=== PATIENT | male | born 1995 | race African-American/Black ===

== ENCOUNTER 2016-11-03 09:58 | Emergency (ER) | payer SELFPAY ==
[~2016-11-03] VITALS: Ht 175.3 cm; Wt 70.0 kg
[2016-11-03 09:59] VITALS: BP 120/68; PULSE 80; RESP 17; TEMP 98.2; O2SAT 99
--- NOTE | 2016-11-03 10:06 | PD ---
HPI . Penile discharge and burning when urinating for 3 days Chief Complaint: Complaint Time Seen by Provider: 10:06 Travel History International Travel<30 days: No Contact w/Intl Traveler<30days: No Traveled to known affect area: No History of Present Illness HPI 21-year-old male with no significant past medical history here with complaints of dysuria and penile discharge for 3 days. Patient admits to unprotected sex with someone. He says that the partner denies any STDs, but he recently started experiencing burning when urinating as well as mucus-like penile discharge. He denies any lumps or lesions. He denies any other symptoms. PFS Past Medical History Medical History: Denies Significant Hx ?: Not Social History Tobacco Use: Yes Substance Use: Yes Allergies-Medications (Allergen,Severity, Reaction): Coded Allergies: No Known Allergies (Unverified , 11/03/16) Reported Meds & Prescriptions Reported Meds & Active Scripts Active No Active Prescriptions or Reported Medications Review of Systems General / Constitutional: No: Fever Eyes: No: Visual changes HENT: No: Headaches Cardiovascular: No: Chest Pain or Discomfort Respiratory: No: Shortness of Breath Gastrointestinal: No: Abdominal Pain Genitourinary: Positive: Dysuria, Other (penile discharge) Musculoskeletal: No: Pain Skin: No Rash Neurologic: No: Weakness Psychiatric: No: Depression Endocrine: No: Polydipsia Hematologic/Lymphatic: No: Easy Bruising Physical Exam Narrative GENERAL: AAO x 3, no acute distress, Well-nourished, well-developed patient. SKIN: Warm and dry. No visible rashes or bruising. HEAD: Normocephalic and atraumatic. EYES: No scleral icterus. No injection or drainage. ENT: No nasal drainage noted. Airway patent. NECK: Supple, trachea midline. No JVD. CARDIOVASCULAR: Regular rate and rhythm without murmurs, gallops, or rubs. RESPIRATORY: Breath sounds equal bilaterally. No accessory muscle use. No rhonchi or rales. GASTROINTESTINAL: Abdomen soft, non-tender, nondistended. GENITAL: Candy ROSENBAUM present: + mucoid white/yellow penile discharge. no lesions EXTREMITIES: No cyanosis or edema. BACK: Nontender without obvious deformity. No CVA tenderness. PSYCH: AAO x 3, normal affect. Data Data Last Documented VS Vital Signs Date Time Temp Pulse Resp B/P Pulse Ox O2 Delivery O2 Flow Rate FiO2 11/03/16 09:59 98.2 80 17 120/68 99 Orders Gc And Chlamydia Pcr (11/03/16 10:11) Azithromycin (Zithromax) (11/03/16 10:15) Ceftriaxone Inj (Rocephin Inj) (11/03/16 10:15) Sodium Chloride 0.9% Flush (Ns Flush) (11/03/16 10:15) Lidocaine 1% Inj (50 Ml) (Xylocaine 1% I (11/03/16 10:15) MDM Medical Decision Making Medical Screen Exam Complete: Yes Emergency Medical Condition: Yes Medical Record Reviewed: Yes Differential Diagnosis Dysuria, urethritis, gonorrhea, Chlamydia, less likely syphilis Narrative Course 21-year-old male with no significant past medical history here with complaints of dysuria and penile discharge for 3 days. Patient admits to unprotected sex with someone. He says that the partner denies any STDs, but he recently started experiencing burning when urinating as well as mucus-like penile discharge. He denies any lumps or lesions. He denies any other symptoms. Patient seen and examined. We'll go ahead and check a urine GC PCR. We discussed STDs. He has opted for treatment. We'll go ahead and provide him with Rocephin and azithromycin. I've advised him to go to [facility] for further testing. Patient verbalized understanding of instructions, questions were answered, and thanked me for their care. I advised them if their condition worsens, please return to the nearest emergency room for further care. Diagnosis Primary Impression: Penile discharge Additional Impression: Dysuria Patient Instructions: General Instructions, Sexually Transmitted Diseases (ED) Additional Instructions: Please return to emergency department if your symptoms return or worsen. Follow up with your primary care provider. Follow-up the health department for further testing. Scripts No Active Prescriptions or Reported Meds Disposition: 01 DISCHARGE HOME Condition: Stable Cleo Appiah November 03, 2016 10:06
[2016-11-03] MEDS ORDERED: SODIUM CHLORIDE 0.9% FLUSH 10 ML FLUSH IVF PRN (10:15)
[2016-11-03] MEDS ORDERED: AZITHROMYCIN 250 MG TAB PO ONE (10:15)
[2016-11-03] MEDS ORDERED: LIDOCAINE HCL 1% 50 ML VIAL XX ONE (10:15)
[2016-11-03] MEDS ORDERED: cefTRIAXone 250 MG VIAL IM ONE (10:15)
[2016-11-03 14:14] LABS: CHLAMYDIA PCR NOT DETECTED (NOT DETECT); NEISSERIA PCR DETECTED (NOT DETECT)
== END 2016-11-03 10:55 | disposition home or self-care (01) ==
LOC: NEPK 09:58
DX: R30.0 Dysuria (principal); R36.9 Urethral discharge, unspecified; Z72.0 Tobacco use; F19.10 Other psychoactive substance abuse, uncomplicated
CPT/HCPCS: 87491; 87591; 96372; 99283; J0696

== ENCOUNTER 2017-03-31 13:22 | Emergency (ER) | payer SELFPAY ==
[~2017-03-31] VITALS: Ht 177.8 cm; Wt 75.0 kg
[2017-03-31 13:24] VITALS: BP 135/76; PULSE 83; RESP 18; TEMP 99; O2SAT 96
[2017-03-31] MEDS ORDERED: cefTRIAXone 250 MG VIAL IM ONE (13:45)
[2017-03-31] MEDS ORDERED: AZITHROMYCIN 250 MG TAB PO ONE (13:45)
--- NOTE | 2017-03-31 13:49 | PD ---
HPI Chief Complaint: Complaint Time Seen by Provider: 13:43 Travel History International Travel<30 days: No Contact w/Intl Traveler<30days: No Traveled to known affect area: No History of Present Illness HPI 22-year-old male presents to the emergency department for evaluation of a possible STD. Patient states he has had burning with urination over the last 2- 3 days. He states he has had some discharge. He has no abdominal pain. No fever or chills. Does have unprotected intercourse. No other symptoms to report. PFSH Past Medical History Medical History: Denies Significant Hx Social History Tobacco Use: Yes Substance Use: Yes Allergies-Medications (Allergen,Severity, Reaction): Coded Allergies: No Known Allergies (Unverified , 03/31/17) Reported Meds & Prescriptions Reported Meds & Active Scripts Active No Active Prescriptions or Reported Medications Review of Systems Except as stated in HPI: all other systems reviewed are Neg Physical Exam Narrative GENERAL: Well-nourished, well-developed male patient, in no acute distress SKIN: Focused skin assessment warm/dry. HEAD: Normocephalic. EYES: No scleral icterus. No injection or drainage. NECK: Supple, trachea midline. No JVD or lymphadenopathy. CARDIOVASCULAR: Regular rate and rhythm without murmurs, gallops, or rubs. RESPIRATORY: Breath sounds equal bilaterally. No accessory muscle use. GASTROINTESTINAL: Abdomen soft, non-tender, nondistended. GENITOURINARY: Circumcised. Testes descended bilaterally without evidence of rotation. No lesions or erythema. Scant white urethral discharge. MUSCULOSKELETAL: No cyanosis, or edema. BACK: Nontender without obvious deformity. No CVA tenderness. Data Data Last Documented VS Vital Signs Date Time Temp Pulse Resp B/P (MAP) Pulse Ox O2 Delivery O2 Flow Rate FiO2 03/31/17 14:40 03/31/17 13:24 99.0 83 18 96 Room Air Orders Orders Urinalysis - C+S If Indicated (03/31/17 13:45) Gc And Chlamydia Pcr (03/31/17 13:45) Ceftriaxone Inj (Rocephin Inj) (03/31/17 13:45) Azithromycin (Zithromax) (03/31/17 13:45) Lidocaine 1% Inj (50 Ml) (Xylocaine 1% I (03/31/17 14:15) Urine Culture (03/31/17 13:40) Labs Laboratory Tests Test 03/31/17 13:40 Urine Color YELLOW Urine Turbidity CLEAR Urine pH 7.0 Urine Specific [place] 1.023 Urine Protein NEG mg/dL Urine Glucose (UA) NEG mg/dL Urine Ketones NEG mg/dL Urine Occult Blood NEG Urine Nitrite NEG Urine Bilirubin NEG Urine Urobilinogen LESS THAN 2.0 MG/DL Urine Leukocyte Esterase TRACE Urine RBC 1 /hpf Urine WBC 13 /hpf Urine Mucus FEW /lpf Microscopic Urinalysis Comment CULTURE INDICATED MDM Medical Decision Making Medical Screen Exam Complete: Yes Emergency Medical Condition: Yes Medical Record Reviewed: Yes Differential Diagnosis Urethritis versus cystitis versus STD Narrative Course 22-year-old male presents to emergency department for evaluation. Patient has a small amount of white drainage from his urethra. He has had unprotected intercourse and has had STD in the past with similar symptoms. He'll be treated empirically. Urine culture sent. Patient is counseled on safe sex practices. I told him that his partners will need to be treated if indeed he is positive. He agrees to return immediately with any acute worsening of symptoms. Diagnosis Primary Impression: Penile discharge Additional Impression: Dysuria Referrals: Primary Care Physician Patient Instructions: General Instructions, Safe Sex (ED) Additional Instructions: It is important that you utilize condom prophylaxis Partners need to treated Return to ed with acute worsening of symptoms Med/Other Pt SpecificInfo: No Change to Meds Scripts No Active Prescriptions or Reported Meds Disposition: 01 DISCHARGE HOME Condition: Stable NavinEveretteAyshashiraz INIGUEZ Mar 31, 2017 13:49
[2017-03-31] MEDS ORDERED: LIDOCAINE HCL 1% 50 ML VIAL XX ONE (14:15)
[2017-03-31 14:37] LABS: BLOOD, URINE NEG (NEG); COMMENT (UR) CULTURE INDICATED; CULTURE IF INDICATED CULTURE INDICATED; GLUCOSE,URINE NEG (NEG); KETONE, URINE NEG (NEG); MUCUS URINE FEW /lpf (OCC); NITRITE,URINE NEG (NEG); URINE COLOR YELLOW (YELLW/STRAW)
[2017-03-31 17:21] LABS: CHLAMYDIA PCR DETECTED (NOT DETECT); NEISSERIA PCR NOT DETECTED (NOT DETECT)
== END 2017-03-31 14:42 | disposition home or self-care (01) ==
LOC: NEPK 13:22
DX: R36.9 Urethral discharge, unspecified (principal); R30.0 Dysuria
CPT/HCPCS: 81001; 87086; 87491; 87591; 96372; 99284; J0696

== ENCOUNTER 2017-11-12 17:32 | Emergency (ER) | payer SELFPAY ==
[~2017-11-12] VITALS: Ht 177.8 cm; Wt 65.0 kg
[2017-11-12 17:46] VITALS: BP 111/59; PULSE 77; RESP 18; TEMP 98.7; O2SAT 99
--- NOTE | 2017-11-12 19:28 | PD ---
HPI Chief Complaint: Complaint Time Seen by Provider: 19:20 Travel History International Travel<30 days: No Contact w/Intl Traveler<30days: No Traveled to known affect area: No History of Present Illness HPI Patient is a 22-year-old male presenting to the emergency department for evaluation of urinary symptoms. Patient states 2 days ago he noticed discharge from his penis. He reported mild burning. He denies any frequency, fever, chills, nausea, vomiting, abdominal pain. Symptom onset was gradual, symptoms are mild in nature. Patient has no significant past medical history to report. Patient denies any pain at this time. He does state that he has had unprotected sex in the last week and half. [facility] Past Medical History Medical History: Denies Significant Hx Social History Tobacco Use: Yes Substance Use: Yes Allergies-Medications (Allergen,Severity, Reaction): Coded Allergies: No Known Allergies (Unverified Adverse Reaction, Unknown, 11/12/17) Reported Meds & Prescriptions Reported Meds & Active Scripts Active No Active Prescriptions or Reported Medications Review of Systems Except as stated in HPI: all other systems reviewed are Neg Genitourinary: Positive: Dysuria, Discharge Physical Exam Narrative GENERAL: Well-developed, well-nourished, alert -[place] male. Presenting in no acute distress. SKIN: Warm and dry. HEAD: Atraumatic. Normocephalic. EYES: Pupils equal and round. No scleral icterus. No injection or drainage. ENT: No nasal bleeding or discharge. Mucous membranes pink and moist. NECK: Trachea midline. No JVD. CARDIOVASCULAR: Regular rate and rhythm. RESPIRATORY: No accessory muscle use. Clear to auscultation. Breath sounds equal bilaterally. GASTROINTESTINAL: Abdomen soft, non-tender, nondistended. Hepatic and splenic margins not palpable. No rebound, no guarding, positive bowel sounds. MUSCULOSKELETAL: Extremities without clubbing, cyanosis, or edema. No obvious deformities. NEUROLOGICAL: Awake and alert. No obvious cranial nerve deficits. Motor grossly within normal limits. Five out of 5 muscle strength in the arms and legs. Normal speech. PSYCHIATRIC: Appropriate mood and affect; insight and judgment normal. Data Data Last Documented VS Vital Signs Date Time Temp Pulse Resp B/P (MAP) Pulse Ox O2 Delivery O2 Flow Rate FiO2 11/12/17 17:46 98.7 77 18 111/59 (76) 99 Orders Orders Urinalysis - C+S If Indicated (11/12/17 19:20) Gc And Chlamydia Pcr (11/12/17 19:20) Sodium Chloride 0.9% Flush (Ns Flush) (11/12/17 19:30) Azithromycin (Zithromax) (11/12/17 19:30) Ceftriaxone Inj (Rocephin Inj) (11/12/17 19:30) Lidocaine 1% Inj (50 Ml) (Xylocaine 1% I (11/12/17 19:30) Labs Laboratory Tests Test 11/12/17 19:46 Urine Color LIGHT-YELLOW Urine Turbidity CLEAR Urine pH 7.0 Urine Specific [place] 1.015 Urine Protein NEG mg/dL Urine Glucose (UA) NEG mg/dL Urine Ketones NEG mg/dL Urine Occult Blood NEG Urine Nitrite NEG Urine Bilirubin NEG Urine Urobilinogen LESS THAN 2.0 MG/DL Urine Leukocyte Esterase NEG Urine WBC 1 /hpf Urine Mucus FEW /lpf Microscopic Urinalysis Comment CULT NOT INDICATED MDM Medical Decision Making Medical Screen Exam Complete: Yes Emergency Medical Condition: Yes Interpretation(s) Laboratory Tests Test 11/12/17 19:46 Urine Color LIGHT-YELLOW Urine Turbidity CLEAR Urine pH 7.0 Urine Specific [place] 1.015 Urine Protein NEG mg/dL Urine Glucose (UA) NEG mg/dL Urine Ketones NEG mg/dL Urine Occult Blood NEG Urine Nitrite NEG Urine Bilirubin NEG Urine Urobilinogen LESS THAN 2.0 MG/DL Urine Leukocyte Esterase NEG Urine WBC 1 /hpf Urine Mucus FEW /lpf Microscopic Urinalysis Comment CULT NOT INDICATED Vital Signs Date Time Temp Pulse Resp B/P (MAP) Pulse Ox O2 Delivery O2 Flow Rate FiO2 11/12/17 17:46 98.7 77 18 111/59 (76) 99 Differential Diagnosis UTI versus STD versus other Narrative Course Patient is a well-appearing 22-year-old male presenting for evaluation of discharge from his penis. Patient's vital signs are stable, abdominal exam is benign. UA, GC and chlamydia pending. Patient will be treated empirically for chlamydia and gonorrhea due to recent unprotected sexual activity as well as presenting symptoms. Urinalysis unremarkable. Patient was advised that he would be notified if he was positive for chlamydia and/or gonorrhea. He was also advised that he would need to notify his sexual partners so they can be tested and/or treated as well. He was advised to avoid sexual activity for 1 week. He was encouraged to follow-up with the [facility] department or with his primary doctor. Additionally patient can return to emergency department for any new or worsening symptoms. He verbalized understanding of these instructions. Patient stable for discharge. Diagnosis Primary Impression: Penile discharge Referrals: Primary Care Physician [facility]. Patient Instructions: General Instructions, Sexually Transmitted Diseases (ED) Additional Instructions: Avoid sexual activity for 1 week He will be notified if your tests are positive, he will need to notify your sexual partner so they can be tested and/or treated as well. Follow-up at the health department or with your primary doctor Return to emergency department for any new or worsening symptoms Med/Other Pt SpecificInfo: No Meds Exist/No RX given Scripts No Active Prescriptions or Reported Meds Disposition: 01 DISCHARGE HOME Condition: Stable Katya Clark November 12, 2017 19:28
[2017-11-12] MEDS ORDERED: SODIUM CHLORIDE 0.9% FLUSH 10 ML FLUSH IVF PRN (19:30)
[2017-11-12] MEDS ORDERED: LIDOCAINE HCL 1% 50 ML VIAL XX ONE (19:30)
[2017-11-12] MEDS ORDERED: AZITHROMYCIN 250 MG TAB PO ONE (19:30)
[2017-11-12] MEDS ORDERED: cefTRIAXone 250 MG VIAL IM ONE (19:30)
[2017-11-12 20:18] LABS: BILIRUBIN, URINE NEG (NEG); BLOOD, URINE NEG (NEG); GLUCOSE,URINE NEG (NEG); KETONE, URINE NEG (NEG); MUCUS URINE FEW /lpf (OCC); NITRITE,URINE NEG (NEG); URINE COLOR LIGHT-YELLOW (YELLW/STRAW); URINE LEUKOCYTE ESTERASE NEG (NEG)
== END 2017-11-12 21:11 | disposition home or self-care (01) ==
LOC: NEPD 17:32
DX: R36.9 Urethral discharge, unspecified (principal); Z72.0 Tobacco use
CPT/HCPCS: 81001; 87491; 87591; 96372; 99283; J0696